=== PATIENT | male | born 2000 | race Two or more races ===

== ENCOUNTER 2025-05-10 17:36 | Emergency (ER) | payer MEDICAID, OTHER ==
[~2025-05-10] VITALS: Ht 170.2 cm; Wt 79.5 kg
[2025-05-10] MEDS ORDERED: HYDR25SU21 PR (18:22)
[2025-05-10 18:25] VITALS: BP 127/96; PULSE 75; RESP 17; TEMP 98; O2SAT 97
--- NOTE | 2025-05-11 11:23 | ED.PDOC ---
GI ASSESSMENT HPI Comments PT REPORTS RECTAL PAIN STARTED YESTERDAY, PMH OF HEMRROIDS, NOTES SIMILAR PAIN, DENIES BLOOD IN STOOL, PAIN WORSENS WITH BM, SITTING AND COUGH. DENIES FEVER OR CHILLS NOTES NO NAUSEA VOMITING OR GROSS BLOOD IN TOILET. Chief Complaint: Rectal Pain Time Seen by MD: 17:59 Reviewed Notes: Nurses Notes, Medications, Allergies Allergies: Coded Allergies: NO KNOWN ALLERGIES (Unverified , 05/10/25) Home Meds Active Scripts Hydrocortisone Acetate (Anusol-Hc) 25 Mg Sup, 1 SUPP WA BID for 7 Days, #14 SUPP Prov:JESSE VIDALES [employer] 05/10/25 Information Source: Patient Mode of Arrival: Ambulatory Past Medical History PAST MEDICAL HISTORY: Denies Surgical History: Denies all surgeries Family History Family History: Reviewed,noncontributory to illness Social History Smoker: Non-Smoker Alcohol: Denies ETOH Use Drugs: Denies Drug Use All Other Systems: Reviewed and Negative (SEE HPI) Physical Exam General Appearance: No Apparent Distress, Normal HEENT: Pharynx Normal Neck: Full Range of Motion, Non-Tender Respiratory: Lungs Clear, No Respiratory Distress, Normal Breath Sounds Cardiovascular: No Edema, No JVD, No Murmur, No Gallop, Normal Peripheral Pulses, Regular Rate/Rhythm Breast Exam: Deferred Gastrointestinal: No Organomegaly, Non Tender, No Pulsatile Mass, Normal Bowel Sounds, Soft Genitalia: Deferred Pelvic: Deferred Rectal: Hemorrhoids (EXTERNAL HEMORRHOID WITHOUT INCARCERATION OR BLEEDING) Extremities: Normal capillary refill, Normal range of motion, Non-tender, No pedal edema Musculoskeletal : Apperance: Normal Neurologic: Alert, No Motor Deficits, Normal Affect, Normal Mood, No Sensory Deficits Cerebellar Function: Normal Reflexes: NOT DONE Skin: Dry, Normal Color, Warm Lymphatic: No Adenopathy Was a procedure done? Was a procedure done?: No GI differential Dx Differential Diagnosis: Bowel Obstruction, Gastroenteritis, Impaction, Ischemic Bowel X-Ray, Labs, Meds, VS Vital Signs Date Time Temp Pulse Resp B/P (MAP) Pulse Ox O2 Delivery O2 Flow Rate FiO2 05/10/25 18:25 98.0 75 17 127/96 (106) 97 98.0 05/10/25 18:25 75 17 97 Room Air 05/10/25 17:38 98.0 75 17 127/96 97 98.0 Time of 1ST Reevaluation: 18:05 Reevaluation 1ST: Unchanged Time of 2ND Reevaluation: 18:19 Reevaluation 2ND: Improved Patient Education/Counseling: Diagnosis, Treatment, Need For Follow Up Family Education/Counseling: No Family Present SEPSIS Sepsis Screen Date sepsis recognized/suspect: May 10, 2025 Time Sepsis recognized/suspect: 8 Recent Procedure: No On Antibiotic Therapy: No Respiratory Rate >20: No Heart Rate >90: No Temp<36 C (96.8 F) or >38.3 C: No SBP <90 or MAP <65 mmHG: No New Acute Mental Status Change: No Is the patient on CPAP, BIPAP,: No Vital Signs Date Time Temp Pulse Resp B/P (MAP) Pulse Ox O2 Delivery O2 Flow Rate FiO2 05/10/25 18:25 98.0 75 17 127/96 (106) 97 98.0 05/10/25 18:25 75 17 97 Room Air 05/10/25 17:38 98.0 75 17 127/96 97 98.0 Departure 1 Departure Time of Disposition: 18:20 Impression: Primary Impression: Acute hemorrhoid Disposition: 01 HOME / SELF CARE / HOMELESS Condition: Stable e-Prescriptions Hydrocortisone Acetate (Anusol-Hc) 25 Mg Sup 1 SUPP WA BID for 7 Days, #14 SUPP Prov: JESSE VIDALES 05/10/25 Discharged With: Self Critical Care Note Critical Care Time?: No Stability Stability form required: JESSE Perkins May 10, 2025 18:22
== END 2025-05-10 18:26 | disposition home or self-care (01) ==
LOC: ER 17:39
DX: K64.4 Residual hemorrhoidal skin tags (principal); Z79.899 Other long term (current) drug therapy